=== PATIENT | male | born 1955 | race Caucasian/White ===

== ENCOUNTER → 2021-04-30 15:22 | Outpatient (CLI) | payer OTHER, SELFPAY ==
--- NOTE | ~2021-04-30 | XR_ITS ---
EXAMINATION: XR lumbar spine 2-3V DATE: 04/30/2021 15:41 INDICATION: Low back pain TECHNIQUE: Anteroposterior and lateral views of the lumbar spine, and cone-down lateral view of the l umbosacral junction were obtained. COMPARISON: None. FINDINGS: There is levocurvature of the lumbar spine. There is no fracture, dislocation, or subluxati on. The vertebral body heights are maintained. There is mild loss of intervertebral disc space height at L3-4. Small degenerative osteophytes project from the anterior endplates of multiple vertebral mike dies. Calcified atherosclerosis is noted. There is mild facet osteoarthritis at multiple levels in th e lumbar spine. IMPRESSION: 1. Mild lumbar spondylosis without acute findings. Reviewed, dictated and finalized at location A.
== END ==
PROVIDERS: Visit Provider Nurse Practitioner Family
DX: M47.816 Spondylosis without myelopathy or radiculopathy, lumbar region (principal)
CPT/HCPCS: 72100

== ENCOUNTER → 2021-05-16 09:23 | Outpatient (CLI) | payer OTHER, SELFPAY ==
--- NOTE | ~2021-05-16 | MR_ITS ---
EXAMINATION: MR lumbar spine wo con DATE: 05/16/2021 10:01 INDICATION: Low back pain. TECHNIQUE: Magnetic resonance imaging (MRI) of the lumbar spine was performed without intravenous con trast. Sequences included sagittal T2-weighted FSE, sagittal T2-weighted FS FSE, sagittal T1-weighted FSE, and axial T2-weighted FSE. COMPARISON: Lumbar spine radiographs 04/30/2021 FINDINGS: There is 7 degrees levocurvature of lumbar spine. Vertebral body heights are normal. Interv ertebral disc heights are normal. The distal spinal cord signal intensity is normal. The conus medull nohemy is at L1. The following disc levels are specifically discussed: L1-L2: The disc does not extend beyond the endplate margin. There is mild bilateral facet joint osteo arthritis. There is no neural foraminal stenosis. There is no central canal stenosis. L2-L3: The disc is bulging. There is mild bilateral facet joint osteoarthritis. There is mild bilater al neural foraminal stenosis. There is mild central canal stenosis. L3-L4: The disc is bulging and has an annular fissure. There is mild bilateral facet joint osteoarthr itis. There is mild bilateral neural foraminal stenosis. There is mild central canal stenosis. L4-L5: The disc is bulging and has an annular fissure. There is mild bilateral facet joint osteoarthr itis. There is mild bilateral neural foraminal stenosis. There is mild central canal stenosis. L5-S1: The disc does not extend beyond the endplate margin. There is severe right and moderate left f acet joint osteoarthritis. There is mild right neural foraminal stenosis. There is no central canal s tenosis. IMPRESSION: 1. Mild lumbar spondylosis. Reviewed, dictated and finalized at location A. IMPRESSION: 1. Mild lumbar spondylosis.
== END ==
PROVIDERS: PCP Nurse Practitioner Family; Visit Provider Nurse Practitioner Family
DX: M47.817 Spondylosis without myelopathy or radiculopathy, lumbosacral region (principal); M48.07 Spinal stenosis, lumbosacral region
CPT/HCPCS: 72148

== ENCOUNTER 2021-09-18 10:11 | Emergency (ER) | payer OTHER, SELFPAY ==
--- NOTE | ~2021-09-18 | XR_ITS ---
EXAMINATION: XR chest 1V portable EXAM DATE: 09/18/2021 12:35 INDICATION: Cough. TECHNIQUE: Frontal and lateral projections of the chest obtained and reviewed. There is no prior merritt dy for comparison. FINDINGS: Possible small amount of ill-defined right basilar airspace disease, developing infectious process. Given community prevalence of COVID 19, recommend testing. Cardiomediastinal silhouette is normal. There is no pneumothorax suspected. There are no pleural effusions. There are mild bony degen erative changes. IMPRESSION: Possible developing right basilar infection. Reviewed, dictated and finalized at location B. [employer]
[2021-09-18 10:17] VITALS: BP 148/67; PULSE 80; RESP 16; TEMP 36.7; O2SAT 95
[2021-09-18 11:44] VITALS: BP 141/81; PULSE 70; RESP 17; O2SAT 97
[2021-09-18 11:52] VITALS: PULSE 71
--- NOTE | 2021-09-18 12:21 | ECG_ITS ---
Measurements Intervals [place] Rate: 71 P: 52 MS: 178 QRS: -11 QRSD: 86 T: 30 QT: 362 QTc: 395 Interpretive Statements SINUS RHYTHM INCOMPLETE RIGHT BUNDLE BRANCH BLOCK BASELINE ARTIFACT- I, II, III, AVR, AVL, AVF, V2-V6 BORDERLINE ECG Electronically Signed On 09-18-2021 12:47:42 [employer] by Bola Klein D.O.
--- NOTE | 2021-09-18 12:46 | ED.GENADULT ---
HPI - General Adult General Chief complaint: Weakness Stated complaint: covid+, weakness Time Seen by Provider: 09/18/21 11:46 Source: patient and RN notes reviewed Mode of arrival: ambulatory Limitations: no limitations History of Present Illness HPI narrative: This is a 66 year old male who presents for evaluation after being found to have COVID. Patient was found to be positive for COVID using an at home test on 09/12/21. His has also been ill since that time. He states he did have sinus headache, body aches and mild cough. He denies chest pain, shortness of breath, nausea, vomiting, diarrhea, fever or chills. He was seen by his PCP yesterday , and he was prescribed azithromycin and dexamethasone. Patient states he feels well and he has no complaints today. He checked in to ER because he brought his up for evaluation and his family wants him to get monoclonal antibodies. Related Data Home Medications Medication Instructions Recorded Confirmed azithromycin 250 mg PO DAILY 09/18/21 09/18/21 dexamethasone 6 mg PO DAILY 09/18/21 09/18/21 Allergies Allergy/AdvReac Type Severity Reaction Status Date / Time No Known Allergies Allergy Verified 09/18/21 11:49 Review of Systems Review of Systems: All systems reviewed & are unremarkable except as noted in HPI and below ENT: Denies sore throat Cardiovascular: Cardiovascular: Denies chest pain Respiratory: Respiratory: Denies cough, Denies dyspnea and Denies wheezing Gastrointestinal: Gastrointestinal: Denies abdominal pain and Denies nausea PMFSH Past Medical History Medical History (Updated 09/18/21 @ 13:09 by Mee Bach MD) Patient denies medical problems Social History Social History (Updated 09/18/21 @ 12:51 by Mee Bach MD) Smoking status: Former smoker Exam Const: General: healthy appearing, no acute distress and alert Orientation/consciousness: patient oriented x3 HENMT: Head: normocephalic and atraumatic Eyes: EOM: EOMs intact bilaterally Resp: Effort & Inspection: normal respiratory effort, not labored and not tachypneic Auscultation: crackles on the right at the base Other: talking in full sentences Cardio: Rate: regular rate Rhythm: regular rhythm GI: GI Palp: Yes Soft to palpation, No Tenderness to palpation present (GI) and No Guarding due to palpation present (GI) Auscultation: normal bowel sounds Skin: General skin exam: normal color Rashes: no rashes Neuro: General: patient oriented x3, moves all extremities and CN's II-XI intact bilaterally Extrem: General: normal to inspection Psych: Mental Status: mental status grossly normal Affect: normal affect Course Reevaluation(s) Reevaluation #1: Patient has no physical complaints in ER. He is not hypoxic. he was able to ambulated without any hypoxia. I have explained to him that we are not allowed to give monoclonal antibodies in ER. He will continue his antibiotics and steroids. I offered to speak to his family over the phone but patient declines. He just stated they will be beating down your door in about an hour . I offer to speak to family again to talk about concerns. Date: 09/18/21 Time: 13:03 Vital Signs Vital signs: Vital Signs Temperature 98.0 F 09/18/21 10:17 Pulse Rate 80 09/18/21 10:17 Respiratory Rate 16 09/18/21 10:17 Blood Pressure 148/67 H 09/18/21 10:17 Pulse Oximetry 95 09/18/21 10:17 Temperature 98.0 F 09/18/21 10:17 Pulse Rate 81 09/18/21 13:38 Respiratory Rate 18 09/18/21 13:38 Blood Pressure 132/74 09/18/21 13:38 Pulse Oximetry 96 09/18/21 13:38 Medical Decision Making Vital Signs Vital Signs: Vital Signs Temperature 98.0 F 09/18/21 10:17 Pulse Rate 80 09/18/21 10:17 Respiratory Rate 16 09/18/21 10:17 Blood Pressure 148/67 H 09/18/21 10:17 Pulse Oximetry 95 09/18/21 10:17 Temperature 98.0 F 09/18/21 10:17 Pulse Rate 81 09/18/21 13:38
[2021-09-18 13:38] VITALS: BP 132/74; PULSE 81; RESP 18; O2SAT 96
== END 2021-09-18 13:39 | disposition home or self-care (01) ==
PROVIDERS: Emergency Provider General Practice
DX: U07.1 COVID-19 (principal); J12.82 Pneumonia due to coronavirus disease 2019; Z87.891 Personal history of nicotine dependence
CPT/HCPCS: 71045; 93005; 99283